=== PATIENT | female | born 1980 | race African-American/Black ===

== ENCOUNTER 2017-01-06 17:34 | Emergency (ER) | payer MEDICAID ==
[~2017-01-06] VITALS: Ht 160 cm; Wt 78.0 kg
[2017-01-06] MEDS ORDERED: SODIUM CHLORIDE 0.9% 1,000 ML IV ONE (18:30)
[2017-01-06] MEDS ORDERED: MECLIZINE 25MG TABLET PO ONE (18:30)
[2017-01-06 19:42] LABS: BASOPHILS % 0.8 % (0.0-2.0); EOSINOPHILS % 0.3 % (0.0-5.0); HEMATOCRIT. 36.9 % (36.0-48.0); HEMOGLOBIN. 11.9 g/dL (12.0-16.0); LYMPHOCYTES % 20.3 % (20.0-50.0); MEAN CORPUSCULAR HEMOGLOBIN 27.7 pg (28.0-32.0); MEAN CORPUSCULAR VOLUME 86.2 fL (81.0-99.0); MEAN PLATELET VOLUME 8.6 fl (7.4-10.4); NEUTROPHILS % 74.6 % (40.0-76.0); PLATELET 270 x1000/uL (130-400); RED BLOOD CELL COUNT 4.28 mill/uL (4.2-5.4); RED CELL DISTRIBUTION WIDTH 14.1 % (11.6-14.6)
[2017-01-06 19:46] LABS: PROTHROMBIN TIME 10.1 sec (9.4-11.6)
[2017-01-06 19:54] LABS: CARBON DIOXIDE 27 mEq/L (21-32); CHLORIDE 105 mEq/L (98-107)
[2017-01-06 21:02] VITALS: BP 118/79
== END 2017-01-06 21:57 | disposition home or self-care (01) ==
LOC: ER 17:34
DX: R07.89 Other chest pain (principal); R21 Rash and other nonspecific skin eruption; R42 Dizziness and giddiness
CPT/HCPCS: 36415; 71010; 80053; 81025; 85025; 85610; 93005; 96360; 96361; 99285; J7030; J8597

== ENCOUNTER 2019-02-15 13:19 | Emergency (ER) | payer MEDICAID ==
[~2019-02-15] VITALS: Ht 167.6 cm; Wt 82.0 kg
[2019-02-15 13:40] VITALS: BP 114/82
== END 2019-02-15 13:58 | disposition left against medical advice (07) ==
LOC: ER 13:34
DX: R51 Headache (principal)
CPT/HCPCS: 99282

== ENCOUNTER 2022-05-31 09:01 | Emergency (ER) | payer MEDICAID ==
[~2022-05-31] VITALS: Ht 167.6 cm; Wt 91.0 kg
[2022-05-31 11:24] LABS: BASOPHILS % 0.6 % (0.0-2.0); EOSINOPHILS % 0.9 % (0.0-5.0); HEMATOCRIT. 34.3 % (36.0-48.0); HEMOGLOBIN. 11.1 g/dL (12.0-16.0); LYMPHOCYTES % 42.3 % (20.0-50.0); MEAN CORPUSCULAR HEMOGLOBIN 27.8 pg (28.0-32.0); MEAN CORPUSCULAR VOLUME 85.5 fL (81.0-99.0); MEAN PLATELET VOLUME 8.9 fl (7.4-10.4); MONOCYTES % 8.1 % (2.0-8.0); NEUTROPHILS % 48.1 % (40.0-76.0); PLATELET 288 x1000/uL (130-400); RED BLOOD CELL COUNT 4.01 mill/uL (4.2-5.4); RED CELL DISTRIBUTION WIDTH 14.2 % (11.6-14.6)
[2022-05-31] MEDS ORDERED: KETOROLAC 30MG/ML VIAL IV ONE (11:45)
[2022-05-31 12:02] LABS: CHLORIDE 108 mEq/L (98-107)
[2022-05-31 13:21] VITALS: BP 106/79
== END 2022-05-31 13:20 | disposition home or self-care (01) ==
LOC: ER 09:01
DX: R07.9 Chest pain, unspecified (principal)
CPT/HCPCS: 36415; 71045; 80053; 83880; 84484; 85025; 93005; 96374; 99285; J1885